=== PATIENT | male | born 1985 | race Caucasian/White ===

== ENCOUNTER 2017-11-15 23:07 | Emergency (ER) | payer OTHER ==
[~2017-11-15] VITALS: Ht 182.9 cm; Wt 81.7 kg
[~2017-11-15 23:07] MED LIST: HYDACE5 PO; Protonix40 MG PO
== END 2017-11-16 00:30 | disposition left against medical advice (07) ==
LOC: ER 23:07
DX: Z53.21 Procedure and treatment not carried out due to patient leaving prior to being seen by health care provider (principal)

== ENCOUNTER 2018-01-31 12:25 | Emergency (ER) | payer OTHER ==
[~2018-01-31] VITALS: Ht 182.9 cm; Wt 81.7 kg
== END 2018-01-31 13:48 ==
LOC: ER 12:25
DX: F11.10 Opioid abuse, uncomplicated (principal); F17.210 Nicotine dependence, cigarettes, uncomplicated
CPT/HCPCS: 36415; 82947; 96361; 96374; 99284-25; J2310; J7030

== ENCOUNTER 2018-02-05 18:55 | Emergency (ER) | payer OTHER ==
[~2018-02-05] VITALS: Ht 182.9 cm; Wt 81.7 kg
== END 2018-02-05 19:05 | disposition left against medical advice (07) ==
LOC: ER 18:55
DX: Z53.21 Procedure and treatment not carried out due to patient leaving prior to being seen by health care provider (principal)
CPT/HCPCS: 99281

== ENCOUNTER 2018-04-21 03:30 | Emergency (ER) | payer OTHER ==
[~2018-04-21] VITALS: Ht 182.9 cm; Wt 79.4 kg
[2018-04-21] MEDS ORDERED: Bactrim Ds Tab1 EACH PO (03:43)
== END 2018-04-21 03:54 | disposition home or self-care (01) ==
LOC: ER 03:30
DX: L03.113 Cellulitis of right upper limb (principal); F17.210 Nicotine dependence, cigarettes, uncomplicated
CPT/HCPCS: 99282

== ENCOUNTER 2019-02-08 18:14 | Emergency (ER) | payer OTHER ==
[~2019-02-08] VITALS: Ht 182.9 cm; Wt 80.5 kg
[~2019-02-08 18:14] MED LIST changes: +Bactrim Ds Tab1 EACH PO
[2019-02-08] MEDS ORDERED: Vibramycin100 MG PO (21:01)
== END 2019-02-08 21:50 | disposition home or self-care (01) ==
LOC: ER 18:14
DX: L03.114 Cellulitis of left upper limb (principal); L03.211 Cellulitis of face; F17.210 Nicotine dependence, cigarettes, uncomplicated
CPT/HCPCS: 36415; 96365; 96366; 96367; 99283-25; J0690; J3370; J7050

== ENCOUNTER 2019-04-06 23:18 | Emergency (ER) | payer OTHER ==
[~2019-04-06] VITALS: Ht 175.3 cm; Wt 79.4 kg
[~2019-04-06 23:18] MED LIST changes: +Vibramycin100 MG PO
== END 2019-04-06 23:33 ==
LOC: ER 23:18
DX: Z00.8 Encounter for other general examination (principal)
CPT/HCPCS: 99283